=== PATIENT | male | born 1985 | race African-American/Black ===

== ENCOUNTER 2021-03-06 09:28 | Emergency (ER) | payer OTHER, SELFPAY ==
[2021-03-06 09:41] VITALS: BP 121/74; PULSE 73; RESP 16; TEMP 36.6; O2SAT 99
--- NOTE | 2021-03-06 09:45 | ED.EAR ---
HPI - Ear Problem General Chief complaint: Ear Stated complaint: left ear hearing loss Time Seen by Provider: 03/06/21 09:44 Source: patient and RN notes reviewed Mode of arrival: ambulatory Limitations: no limitations History of Present Illness HPI Narrative: 36-year-old male presents with concern for decreased hearing left ear. He denies ear pain, drainage. Reports he has been using a Q-tip to try to remove wax from his ear. He denies any upper respiratory symptoms, runny nose, stuffy nose, fever. Denies ever having to have his ears cleaned out. Complaint: decreased hearing Location: left ear Related Data Home Medications Medication Instructions Recorded Confirmed dextroamphetamine-amphetamine 03/06/21 Allergies Allergy/AdvReac Type Severity Reaction Status Date / Time No Known Allergies Allergy Unknown Verified 03/06/21 09:41 Review of Systems Review of Systems: Narrative: CONSTITUTIONAL: Denies malaise, chills, sweats, or fever. EYES: Denies visual changes, redness, or discharge. ENT: Denies rhinorrhea, congestion, sinus pain, otalgia and sore throat.. Reports decreased hearing in the left ear CARDIOVASCULAR: Denies chest pain, palpitations, or edema. RESPIRATORY: Denies cough or dyspnea. GASTROINTESTINAL: Denies abdominal pain, nausea, vomiting, diarrhea SKIN: Denies rash or itching. MUSCULOSKELETAL: Denies myalgia. NEUROLOGIC: Denies headache. All systems reviewed & are unremarkable except as noted in HPI and below PMFSH Comments At time of signature, agree with nursing past medical, surgical, social and family history. There is no relevant family history pertinent to the presenting complaint Exam Narrative: Exam Narrative: GENERAL: Well-appearing, well-nourished, and in no acute distress. HEAD: Normocephalic EYES: PERRLA, conjunctivae clear ENT: Nares clear. Mucous membranes moist. Right TM pearly manley with dull light reflex left TM not visible due to excess cerumen; no tragal tenderness. NECK: Supple. No lymphadenopathy CHEST: Clear to auscultation, breath sounds equal. No wheezing, rhonchi, rales, or stridor. No respiratory distress, speaks in full sentences. HEART: Regular rate and rhythm. No murmur heard. SKIN: Warm, dry, no rash. NEURO: Alert and oriented x3. PSYCH: Normal mood and affect Course Course Emergency Course: Patient is aware of diagnosis, understands and agrees to treatment plan. Anticipatory guidance given. Patient agrees to follow-up as directed and is aware of reasons to seek care at the emergency department. Portions of this record may have been created with voice recognition software Vital Signs Vital signs: Vital Signs Temperature 97.8 F 03/06/21 09:41 Pulse Rate 73 03/06/21 09:41 Respiratory Rate 16 03/06/21 09:41 Blood Pressure 121/74 03/06/21 09:41 Pulse Oximetry 99 03/06/21 09:41 Temperature 97.8 F 03/06/21 09:41 Pulse Rate 73 03/06/21 09:41 Respiratory Rate 16 03/06/21 09:41 Blood Pressure 121/74 03/06/21 09:41 Pulse Oximetry 99 03/06/21 09:41 Reviewed. Procedures Ear Wax Removal Left Ear: Ear Wax Removal Date: 03/06/21 Ear Wax Removal Time: 09:50 Cerumenolytic Used: 5-10% Sodium Bicarb solution Results: Re-examined: cerumen removed completely TM Examination: TM(s) intact, normal appearance Ear Canal Exam: atraumatic Patient Tolerated Procedure: well Complications: no problems Technique: ear canal irrigated and ear canal curetted Medical Decision Making MDM Narrative Medical decision making narrative: Differential diagnosis considered: allergic rhinitis, upper respiratory tract infection, sinusitis, rhinosinusitis, nasopharyngitis. viral pharyngitis, otitis media, otitis externa. Exam findings show no acute concerns or changes; patient is non-toxic appearing and is in no distress. Patient is appropriate for outpatient treatment and follow-up. Vital Signs Vital
== END 2021-03-06 10:26 | disposition home or self-care (01) ==
PROVIDERS: Emergency Provider Nurse Practitioner; PCP Emergency Medicine
DX: H61.22 Impacted cerumen, left ear (principal)
CPT/HCPCS: 69210; 99212; G0463

== ENCOUNTER 2022-04-25 08:31 | Emergency (ER) | payer OTHER, SELFPAY ==
[2022-04-25 08:45] VITALS: BP 110/82; PULSE 67; RESP 16; TEMP 36.3; O2SAT 98
[2022-04-25 08:47] VITALS: BP 110/82; PULSE 67; RESP 16; TEMP 36.3; O2SAT 98
--- NOTE | 2022-04-25 09:11 | ED.EAR ---
HPI - Ear Problem General Chief complaint: Ear Stated complaint: left ear clogged Source: patient and RN notes reviewed Mode of arrival: ambulatory Limitations: no limitations History of Present Illness HPI Narrative: 37-year-old male presents concern for feeling of left ear being clogged. Reports he has had a history of cerumen impaction, he tried to use peroxide last night without relief. He reports he cannot hear from that ear. He denies upper respiratory symptoms, runny nose, stuffy nose, sore throat. MD Complaint: decreased hearing Related Data Home Medications Medication Instructions Recorded Confirmed dextroamphetamine-amphetamine 20 1.5 tablet PO DAILY 03/06/21 04/25/22 mg tablet Allergies Allergy/AdvReac Type Severity Reaction Status Date / Time No Known Allergies Allergy Unknown Verified 04/25/22 08:47 Review of Systems Review of Systems: CONSTITUTIONAL: Denies malaise, chills, sweats, or fever. EYES: Denies visual changes, redness, or discharge. ENT: Denies rhinorrhea, congestion, sinus pain, and sore throat. Reports left ear fullness CARDIOVASCULAR: Denies chest pain, palpitations, or edema. RESPIRATORY: Denies cough. Denies dyspnea. GASTROINTESTINAL: Denies abdominal pain, nausea, vomiting, diarrhea SKIN: Denies rash or itching. MUSCULOSKELETAL: Denies myalgia. NEUROLOGIC: Denies headache. All systems reviewed & are unremarkable except as noted in HPI and below PMFSH Comments At time of signature, agree with nursing past medical, surgical, social and family history. There is no relevant family history pertinent to the presenting complaint Exam Narrative: GENERAL: Well-appearing, well-nourished, and in no acute distress. HEAD: Normocephalic EYES: PERRLA, conjunctivae clear ENT: Nares clear. Mucous membranes moist. Right TM pearly manley with sharp light reflex, left TM not visible due to cerumen impaction; no tragal tenderness. NECK: Supple. No lymphadenopathy CHEST: No respiratory distress, speaks in full sentences. HEART: Regular rate and rhythm. No murmur heard. SKIN: Warm, dry, no rash. NEURO: Alert and oriented x3. PSYCH: Normal mood and affect Course Course Emergency Course: Patient is aware of diagnosis, understands and agrees to treatment plan. Anticipatory guidance given. Patient agrees to follow-up as directed and is aware of reasons to seek care at the emergency department. Portions of this record may have been created with voice recognition software Level of Care: Express Care Visit Vital Signs Vital signs: Vital Signs Temperature 97.3 F L 04/25/22 08:45 Pulse Rate 67 04/25/22 08:45 Respiratory Rate 16 04/25/22 08:45 Blood Pressure 110/82 04/25/22 08:45 Pulse Oximetry 98 04/25/22 08:45 Temperature 97.3 F L 04/25/22 08:47 Pulse Rate 67 04/25/22 08:47 Respiratory Rate 16 04/25/22 08:47 Blood Pressure 110/82 04/25/22 08:47 Pulse Oximetry 98 04/25/22 08:47 Reviewed. Procedures Ear Wax Removal Left Ear: Ear Wax Removal Date: 04/25/22 Ear Wax Removal Time: 09:26 Cerumenolytic Used: other Results: Re-examined: cerumen removed completely TM Examination: TM(s) intact, normal appearance Ear Canal Exam: atraumatic Patient Tolerated Procedure: well Complications: no problems Technique: ear canal irrigated Medical Decision Making MDM Narrative Medical decision making narrative: Differential diagnosis considered: Meza virus, strep pharyngitis, allergic rhinitis, upper respiratory tract infection, sinusitis, rhinosinusitis, nasopharyngitis. viral pharyngitis, otitis media, otitis externa, otitis effusion, cerumen impaction, foreign body. Exam findings show no acute concerns or changes; patient is non-toxic appearing and is in no distress. Patient is appropriate for outpatient treatment and follow-up. Vital Signs Vital Signs: Vital Signs Temperature 97.3 F L 04/25/22 08:45 Pul
== END 2022-04-25 09:43 | disposition home or self-care (01) ==
PROVIDERS: Emergency Provider Nurse Practitioner; PCP Emergency Medicine
DX: H61.22 Impacted cerumen, left ear (principal); F90.9 Attention-deficit hyperactivity disorder, unspecified type
CPT/HCPCS: 69209; 99212; G0463

== ENCOUNTER 2023-06-04 12:48 | Emergency (ER) | payer BC, SELFPAY ==
--- NOTE | ~2023-06-04 | XR_ITS ---
EXAMINATION: XR abdomen/kub 1V INDICATION: Left flank pain TECHNIQUE: Supine views of the abdomen were obtained on 2 radiographs. COMPARISON: None FINDINGS: The bowel gas pattern is normal. A moderate volume of colonic stool is present. No urolithi asis is identified. IMPRESSION: 1. Moderate volume of colonic stool. Reviewed, dictated and finalized at location B.
--- NOTE | 2023-06-04 12:54 | ED.MALEGU ---
HPI - Male Genitourinary General Chief complaint: Back Pain/Injury Stated complaint: FLANK PAIN Time Seen by Provider: 06/04/23 12:54 Source: patient Mode of arrival: ambulatory Limitations: no limitations History of Present Illness HPI Narrative: Patient is a 38-year-old male who presents with left flank pain that started Wednesday night. Patient states pain had resolved morning but when he went to lift garage door and pain started again. Patient is able to bend and touch his toes without pain, pain when twisting to the right. No pain on palpation. Denies any blood in urine, burning with urination, increased frequency, fever, chills, nausea, vomiting, diarrhea. Related Data Home Medications Medication Instructions Recorded Confirmed dextroamphetamine-amphetamine 20 1.5 tablet PO DAILY 03/06/21 06/04/23 mg tablet Allergies Allergy/AdvReac Type Severity Reaction Status Date / Time No Known Allergies Allergy Unknown Verified 06/04/23 13:15 Review of Systems Review of Systems: All systems reviewed & are unremarkable except as noted in HPI and below Constitutional: Constitutional: Denies body ache(s), Denies chills, Denies fatigue, Denies fever(s), Denies headache(s), Denies malaise and Denies weakness Eyes: Eyes: Denies blurry vision, Denies irritation and Denies loss of vision ENT: Denies otalgia, Denies headache(s), Denies nasal discharge, Denies sinus pain and Denies sore throat Cardiovascular: Cardiovascular: Denies chest pain, Denies irregular heart rhythm and Denies dyspnea Respiratory: Respiratory: Denies dyspnea Gastrointestinal: Gastrointestinal: Denies abdominal pain, Denies melena, Denies hematochezia, Denies diarrhea, Denies nausea and Denies vomiting Genitourinary: Genitourinary: Reports flank pain Musculoskeletal: Musculoskeletal: Denies back pain, Denies myalgias and Denies arthralgias Integumentary/Breasts: Skin/Breast: Denies pruritus and Denies rash Neurologic: Denies headache(s), Denies loss of vision and Denies weakness Psychiatric: Psychiatric: Reports no additional psychiatric complaints Endocrine: Endocrine: Denies fatigue PMFSH Comments At time of signature, agree with nursing past medical, surgical, social and family history. There is no relevant family history pertinent to the presenting complaint. Exam Const: General: cooperative, healthy appearing, comfortable, no acute distress and well nourished Nutritional Appearance: well nourished Orientation/consciousness: patient oriented x3 Limitations: no limitations HENMT: Head: normal to inspection, normocephalic and atraumatic Ears: hearing grossly normal bilaterally and external ears normal Face/Nose/Sinus: Normal external nose present, normal facial exam and face symmetric Face and sinus: normal facial exam and face symmetric Mouth: Yes lip normal Eyes: General: appearance normal, both eyes and all related structures Alignment and Position: alignment normal and position normal Periorbital: periorbital findings normal Eyelids: eyelids normal Pupils: Equal, round and reactive pupils present EOM: EOMs intact bilaterally Neck: Neck: normal visual inspection, full ROM and supple Chest: Chest palpation & inspection: normal inspection of the chest Resp: Effort & Inspection: normal respiratory effort and able to speak in complete sentences Auscultation: clear to auscultation bilaterally Cardio: Rate: regular rate Rhythm: regular rhythm Heart sounds: S1 normal heart sound present and S2 normal heart sound present GI: Inspection: normal to inspection : General: Yes no CVA tenderness Back/Spine/Pelvis: Back: no CVA tenderness Thoracic/Lumbar Spine: thoracic and lumbar spine normal to inspection, thoraco-lumbar ROM normal, straight leg raise negative bilaterally, pain with thoraco-lumbar ROM (twisting all the way to the right), No paraspinal muscle tenderness, No thoraco-lumbar ROM limited, No thoraco-lumbar sp
[2023-06-04 12:57] VITALS: BP 122/84; PULSE 74; RESP 16; TEMP 36.8; O2SAT 98
[2023-06-04] MEDS: KETOROLAC 30 MG/ML VIAL (*BKC) IM (13:34)
--- NOTE | 2023-06-04 13:59 | PC.NURSE ---
URINAL, STRAINER, AND SPECIMEN CUP PROVIDED.
== END 2023-06-04 13:51 | disposition home or self-care (01) ==
PROVIDERS: Emergency Provider Nurse Practitioner Family; PCP Emergency Medicine
DX: R10.9 Unspecified abdominal pain (principal); F90.9 Attention-deficit hyperactivity disorder, unspecified type
CPT/HCPCS: 74018; 96372; 99213; G0463; J1885